=== PATIENT | female | born 1975 | race Caucasian/White ===

== ENCOUNTER 2018-12-18 07:47 | Outpatient (CLI) | payer OTHER ==
[2018-12-18 10:28] LABS: BASOPHILS # (AUTO) 0.1 10^3/uL (0.0-0.1); EOSINOPHILS # (AUTO) 0.2 10^3/uL (0.0-0.7); EOSINOPHILS % (AUTO) 3.1 %; HGB - HEMOGLOBIN 14.3 g/dL (12.0-16.0); LYMPHOCYTES # (AUTO) 2.1 10^3/uL (1.5-3.5); LYMPHOCYTES % (AUTO) 40.3 %; MEAN CORPUSCULAR HEMOGLOBIN 31.5 pg (27.0-31.0); MEAN CORPUSCULAR VOLUME 92.7 fL (81.0-99.0); MEAN PLATELET VOLUME 9.1 fL (7.9-10.8); MONOCYTES # (AUTO) 0.4 10^3/uL (0.0-1.0); MONOCYTES % (AUTO) 7.6 %; NEUTROPHILS # (AUTO) 2.5 10^3/uL (1.5-6.6); PLT - PLATELET COUNT 252 10^3/uL (130-450); RED BLOOD COUNT 4.54 10^6/uL (4.20-5.40); RED CELL DISTRIBUTION WIDTH 13.6 % (12.0-15.0); WHITE BLOOD COUNT 5.1 x10^3/uL (4.8-10.8)
[2018-12-18 10:40] LABS: HB2 TOTAL 15.6 g/dL; HEMOGLOBIN A1C 0.55 g/dL; HEMOGLOBIN A1C % 5.4 % (4.6-6.2)
[2018-12-18 10:41] LABS: CHOL/HDL RATIO 3.4 (<4.4); CHOLESTEROL 191 mg/dL; HDL CHOLESTEROL 57 mg/dL; LDL CHOLESTEROL,CALCULATED 112 mg/dL; VLDL CHOLESTEROL 22 mg/dL
== END 2018-12-18 07:48 | disposition home or self-care (01) ==
LOC: LAB.F 07:47
PROVIDERS: ATTEND Nurse Practitioner Family
DX: Z13.220 Encounter for screening for lipoid disorders (principal); Z13.1 Encounter for screening for diabetes mellitus; K20.9 Esophagitis, unspecified; R25.8 Other abnormal involuntary movements
CPT/HCPCS: 36415; 80061; 83036; 83721; 84443; 85025

== ENCOUNTER 2019-01-04 07:32 | Outpatient (CLI) | payer OTHER | END 2019-01-04 07:33 | disposition home or self-care (01) | LOC: LAB.F 07:32 | PROVIDERS: ATTEND Obstetrics & Gynecology | DX: N95.1 Menopausal and female climacteric states (principal) | CPT/HCPCS: 36415; 82670; 83001 ==

== ENCOUNTER 2019-01-18 16:48 | Outpatient (CLI) | payer OTHER ==
--- NOTE | 2019-01-19 11:05 | Ultrasound Report ---
Reason: PELVIC PAIN Procedure Date: 01/18/2019 Accession Number: [id number] / [id number] Procedure: US - Pelvic w/Transvaginal CPT Code: FULL RESULT: EXAM: PELVIC ULTRASOUND EXAM DATE: 01/18/2019 05:38 PM. CLINICAL HISTORY: Pelvic pain. COMPARISON: None. TECHNIQUE: Realtime transabdominal pelvic scan performed to identify the uterus and adnexa and as an overview of other pelvic structures, followed by transvaginal scan to provide greater detail of the uterus and adnexa, with static image documentation. FINDINGS: Uterus: Status post hysterectomy. Right Ovary: 4.8 x 3.4 x 2.3 cm, volume 19.6 cc. A 2.2 x 1.7 x 2.1 cm cyst was noted. Left Ovary: Status post left oophorectomy. Free Fluid: None. Other: None. IMPRESSION: Right ovarian cyst which is within normal limits for size in the premenopausal patient. RADIA
== END 2019-01-18 16:49 | disposition home or self-care (01) ==
LOC: DI 16:48
PROVIDERS: ATTEND Obstetrics & Gynecology
DX: R10.2 Pelvic and perineal pain (principal); N83.201 Unspecified ovarian cyst, right side
CPT/HCPCS: 76830; 76856

== ENCOUNTER 2021-03-04 14:44 | Inpatient (IN) | payer OTHER ==
[2021-03-04] MEDS ORDERED: HYDROmorphone 1 MG/ML CARPUJECT IVP STA ×3 (14:53→16:14)
[2021-03-04] MEDS ORDERED: ONDANSETRON 4 MG/2 ML VIAL IVP STA (14:53)
--- NOTE | 2021-03-04 14:54 | ED Physician Documentation ---
PD HPI ABD PAIN - Stated complaint Stated Complaint: ABD PX - Chief complaint Chief Complaint: Abd Pain - History obtained from History obtained from: Patient - History of Present Illness Worsened by: Moving Associated symptoms: Nausea, Vomiting Recently seen: Not recently seen - Additional information Additional information: Sudden onset right lower quadrant pain a few hours ago. It is sudden and severe. Feels like prior ovary pain but worse. She has a hysterectomy and left oophorectomy but the right ovary is still in place. 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 - Present Medications Home Medications: Ambulatory Orders Medication Instructions Recorded Confirmed Ondansetron [Zofran] 4 mg PO Q6H PRN #10 tablet 10/26/14 Phenazopyridine [Pyridium] 200 mg PO TID 6 Days tablet 10/26/14 Sulfamethoxazole/Trimethoprim 1 each PO BID #14 tablet 10/26/14 [Sulfamethoxazole-Tmp Ds Tablet] - Allergies Allergies/Adverse Reactions: Allergies Allergy/AdvReac Type Severity Reaction Status Date / Time morphine Allergy Respiratory Verified 03/04/21 14:50 - Social History Does the pt smoke?: No Smoking Status: Never smoker Does the pt drink ETOH?: No Does the pt have substance abuse?: No - Family History Family history: reports: Non contributory - Immunizations Immunizations are current?: Yes - POLST Patient has POLST: No PD ED PE NORMAL - Vitals Vital signs reviewed: Yes - General General: Alert and oriented X 3, Other (She is histrionic and writhing in pain.) - HEENT HEENT: PERRL, EOMI - Neck Neck: Supple, no meningeal sign, No bony TTP - Cardiac Cardiac: RRR, No murmur - Respiratory Respiratory: No respiratory distress, Clear bilaterally - Abdomen Abdomen: Soft, Other (Diffuse tenderness most localized in the right lower quadrant without surgical signs) - Back Back: No spinal TTP - Derm Derm: Normal color, Warm and dry - Extremities Extremities: No edema, No calf tenderness / cord - Neuro Neuro: Alert and oriented X 3, Normal speech - Psych Psych: Normal mood, Normal affect Results - Vitals Vitals: Vital Signs - 24 hr 03/04/21 03/04/21 03/04/21 14:46 14:49 16:21 Temperature 36.8 C 36.8 C Heart Rate 81 81 70 Respiratory 22 22 16 Rate Blood Pressure 128/77 128/77 130/80 O2 Saturation 100 100 95 Oxygen O2 Source Room air - Labs Labs: Laboratory Tests 03/04/21 03/04/21 03/04/21 15:05 15:05 15:52 WBC 14.4 H RBC 4.94 Hgb 15.4 Hct 43.7 MCV 88.5 MCH 31.2 H MCHC 35.2 RDW 13.2 Plt Count 308 MPV 10.6 Neut # (Auto) 11.9 H Lymph # (Auto) 1.8 [place] # (Auto) 0.6 Eos # (Auto) 0.0 Baso # (Auto) 0.1 Absolute Nucleated RBC 0.00 Nucleated RBC % 0.0 Sodium 135 Potassium 4.0 Chloride 104 Carbon Dioxide 18 L Anion Gap 13.0 BUN 12 Creatinine 0.8 Estimated GFR (MDRD) 78 L Glucose 141 H Calcium 9.2 Total Bilirubin 0.9 AST 14 ALT 11 Alkaline Phosphatase 58 Total Protein 7.9 Albumin 4.7 Globulin 3.2 Albumin/Globulin Ratio 1.5 Lipase 22 Urine Color Urine Clarity Urine pH Ur Specific [place] Urine Protein Urine Glucose (UA) Urine Ketones Urine Occult Blood Urine Nitrite Urine Bilirubin Urine Urobilinogen Ur Leukocyte Esterase Ur Microscopic Review Urine Culture Comments Nasal Adenovirus (PCR) NOT DETECTED Nasal B. parapertussis DNA (PCR) NOT DETECTED Nasal Coronavir 229E PCR NOT DETECTED Nasal Coronavir HKU1 PCR NOT DETECTED Nasal Coronavir NL63 PCR NOT DETECTED Nasal Coronavir OC43 PCR NOT DETECTED Nasal Enterovir/Rhinovir PCR NOT DETECTED Nasal Influenza B PCR NOT DETECTED Nasal Influenza A PCR NOT DETECTED Nasal Parainfluen 1 PCR NOT DETECTED Nasal Parainfluen 2 PCR NOT DETECTED Nasal Parainfluen 3 PCR NOT DETECTED Nasal Parainfluen 4 PCR NOT DETECTED Nasal RSV (PCR) NOT DETECTED Nasal B.pertussis DNA PCR NOT DETECTED Nasal C.pneumoniae (PCR) NOT DETECTED Rodrigue Human Metapneumo PCR NOT DETECTED Nasal M.pneumoniae (PCR) NOT DETECTED Nasal SARS-CoV-2 (PCR) NOT DETECTED 03/04/21 17:05 WBC RBC Hgb Hct MCV MCH MCHC RDW Plt Count MPV Neut # (Auto) Lymph # (Auto) [place] # (Auto) Eos # (Auto) Baso # (Auto) Absolute Nucleated RBC Nucleated RBC % Sodium Potassium Chloride Carbon Dioxide Anion Gap BUN Creatinine Estimated GFR (MDRD) Glucose Calcium Total Bilirubin AST ALT Alkaline Phosphatase Total Protein Albumin Globulin Albumin/Globulin Ratio Lipase Urine Color YELLOW Urine Clarity CLEAR Urine pH 5.5 Ur Specific [place] 1.020 Urine Protein NEGATIVE Urine Glucose (UA) NEGATIVE Urine Ketones 15 H Urine Occult Blood NEGATIVE Urine Nitrite NEGATIVE Urine Bilirubin NEGATIVE Urine Urobilinogen 0.2 (NORMAL) Ur Leukocyte Esterase NEGATIVE Ur Microscopic Review NOT INDICATED Urine Culture Comments NOT INDICATED Nasal Adenovirus (PCR) Nasal B. parapertussis DNA (PCR) Nasal Coronavir 229E PCR Nasal Coronavir HKU1 PCR Nasal Coronavir NL63 PCR Nasal Coronavir OC43 PCR Nasal Enterovir/Rhinovir PCR Nasal Influenza B PCR Nasal Influenza A PCR Nasal Parainfluen 1 PCR Nasal Parainfluen 2 PCR Nasal Parainfluen 3 PCR Nasal Parainfluen 4 PCR Nasal RSV (PCR) Nasal B.pertussis DNA PCR Nasal C.pneumoniae (PCR) Rodrigue Human Metapneumo PCR Nasal M.pneumoniae (PCR) Nasal SARS-CoV-2 (PCR) - Rads (name of study) Pelvic Sono Radiology: EMP read contemporaneously (c/w R ovarian torsion with large complex cyst) PD MEDICAL DECISION MAKING - ED course ED course: 45-year-old woman who has had a remote hysterectomy and left oophorectomy but has known cyst on the right ovary presents with severe sudden onset right pelvic pain and "looks" like she is torsing. This is proven on ultrasound and our on- call research study assistant was called in at 3:50 PM, Dr. Peck. - Critical Care Time(min): 35 Time Includes: Direct patient care (multiple rpt doses narcotics for severe pain), Reassess patient, Document care, Coordinate care, Medical consult, Family consult for tx dec Data interpretation: Labs, Pulse ox Procedures included in critical care time: Peripheral IV Departure - Departure Disposition: ED Transfer to [facility] Clinical Impression: Ovarian torsion Condition: Serious Discharge Date/Time: 03/04/21 17:09
[2021-03-04] MEDS ORDERED: KETOROLAC 30 MG/ML VIAL IVP STA (15:18)
[2021-03-04 15:19] LABS: BASOPHILS # (AUTO) 0.1 10^3/uL (0.0-0.1); BASOPHILS % (AUTO) 0.3 %; EOSINOPHILS % (AUTO) 0.1 %; HCT - HEMATOCRIT 43.7 % (37.0-47.0); HGB - HEMOGLOBIN 15.4 g/dL (12.0-16.0); LYMPHOCYTES # (AUTO) 1.8 10^3/uL (1.5-3.5); LYMPHOCYTES % (AUTO) 12.5 %; MEAN CORPUSCULAR HEMOGLOBIN 31.2 pg (27.0-31.0); MEAN CORPUSCULAR HGB CONC 35.2 g/dL (32.0-36.0); MEAN CORPUSCULAR VOLUME 88.5 fL (81.0-99.0); MEAN PLATELET VOLUME 10.6 fL (7.9-10.8); MONOCYTES # (AUTO) 0.6 10^3/uL (0.0-1.0); MONOCYTES % (AUTO) 3.8 %; NEUTROPHILS # (AUTO) 11.9 10^3/uL (1.5-6.6); PLT - PLATELET COUNT 308 10^3/uL (130-450); RED BLOOD COUNT 4.94 10^6/uL (4.20-5.40); RED CELL DISTRIBUTION WIDTH 13.2 % (12.0-15.0); WHITE BLOOD COUNT 14.4 x10^3/uL (4.8-10.8)
[2021-03-04 15:33] LABS: ALBUMIN 4.7 g/dL (3.2-5.5); ALBUMIN/GLOBULIN RATIO 1.5 (1.0-2.2); BILIRUBIN,TOTAL 0.9 mg/dL (0.2-1.0); CALCIUM 9.2 mg/dL (8.5-10.3); CREATININE 0.8 mg/dL (0.4-1.0); TOTAL PROTEIN 7.9 g/dL (6.7-8.2)
[2021-03-04] MEDS ORDERED: LACTATED RINGERS 1,000 ML IV STA (15:51)
[2021-03-04] MEDS ORDERED: ceFAZolin 2 GM/50 ML 2 GM/50 ML BAG IV ONE (16:27)
--- NOTE | 2021-03-04 16:28 | Ultrasound Report ---
PROCEDURE: Pelvic w/Doppler Complete INDICATIONS: RT PELVIC PX TORSION? S/P HYSTER LT OOPH TECHNIQUE: Real-time scanning was performed of the pelvic organs, with image documentation. Additional endovagi nal scanning was necessary due to incomplete visualization of the adnexal and endometrial structures by transabdominal scanning. COMPARISON: 01/18/2019 pelvic ultrasound.. FINDINGS: No pathologic free abdominal or pelvic fluid. Uterus: Uterus is surgically absent. Ovaries: The right ovary measures 9.9 x 5.0 x 6.3 cm with 162 cc volume. The left ovary is surgicall y absent. Reduced blood flow is seen at the right ovary in addition to this overall enlargement. IMPRESSION: Enlarged right ovary measuring up to 162 cc, with reduced blood flow consistent with right ovarian to rsion. Quality of visualization is somewhat limited-prior hysterectomy and left oophorectomy. Reviewed by: John Walton MD on 03/04/2021 3:26 PM JAYSHREE Approved by: John Walton MD on 03/04/2021 3:26 PM JAYSHREE Station ID: [id number]
[2021-03-04] MEDS ORDERED: LIDOCAINE-MPF 2% 5 ML VIAL ONE (16:39)
[2021-03-04] MEDS ORDERED: ROPIVACAINE 0.5% PF 20 ML AMPULE ONE (16:39)
[2021-03-04] MEDS ORDERED: fentaNYL 100 MCG/2 ML VIAL ONE (16:39)
[2021-03-04] MEDS ORDERED: DEXAMETHASONE 4 MG/ML VIAL ONE (16:39)
[2021-03-04] MEDS ORDERED: KETOROLAC 30 MG/ML VIAL ONE (16:39)
[2021-03-04] MEDS ORDERED: ONDANSETRON 4 MG/2 ML VIAL ONE (16:39)
[2021-03-04] MEDS ORDERED: ROCURONIUM 50 MG/5 ML VIAL ONE ×2 (16:39→17:46)
[2021-03-04] MEDS ORDERED: PROPOFOL 200 MG/20 ML VIAL IVP ONE (16:39)
--- NOTE | 2021-03-04 16:43 | HISTORY & PHYSICAL EXAMINATION ---
History and Physical - History and Physical Identification: Patient is a 43-year-old . Chief complaint abdominal pain History of present illness patient states at 9:00 this morning she developed sharp right lower quadrant pain which has become constant unrelenting and increasing with time. She has a history of having had her uterus as well as left ovary removed and serial operations. She has had difficulty with ovarian cyst which of cause pain off and on. She has had an ultrasound which shows a pelvic mass which is 9.9 x 5 x 6.3 cm. There is minimal blood flow noted to it at this particular time. At this point the diagnosis of torsed ovary is being made. Past medical history: Patient denies any history of hypertensive diabetic cardiac or pulmonary disease Surgical history: C/Section. patient has had initially a laparotomy for removal of fibroids this was not performed initially. She had to have a reoperation with removal of the uterus. To this she had a reexploration which they took the left tube and ovary as well as the cervix out. Allergies morphine which causes swelling Current medications: none Habits: Patient denies use of alcohol tobacco or street of addictive drugs or marijuana. Social history; patient is lives with her spouse in a sober safe environment. 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 Review of systems noncontributory Physical examination: Patient is a well-developed well-nourished female she is currently apparently under the influence of the Dilaudid. She does respond and address questions intelligently. She is in a moderate to amount of pain. HEENT: Pupils equal round extraocular muscles intact Heart: Regular rate and rhythm without murmurs lungs: Clear without rales weight breezes Back: no spinal or CVA tenderness noted Abdomen: Nondistended bowel sounds are present patient has pain in the right lower quadrant which duplicates the pain she is complaining of. Back no spinal or CVA tenderness noted No calf tenderness. Impression: 45-year-old female with To Sonic evidence of a torsed right ovary. Plan: We will perform exploratory laparotomy because of the size. Will remove the ovary. Risks and benefits have been explained the patient including those but not limited to bleeding, infection, injury to the pelvic organs. She is aware the potential for DVT with PE. As well as postop adhesions which could cause pain, bowel obstruction. Moises Peck MD.
--- NOTE | 2021-03-04 16:45 | ANESTHESIA ---
Pre-Anesthesia VS, & Labs - Diagnosis abdominal pain - Procedure Diagnostic laparoscopy, right oopherectomy Vital Signs: Temp Pulse Resp BP Pulse Ox 36.8 C 70 16 130/80 95 03/04/21 14:49 03/04/21 16:21 03/04/21 16:21 03/04/21 16:21 03/04/21 16:21 Height: 5 ft 6 in Weight (kg): 81.647 kg Body Mass Index: 29.0 BMI Classification: Overweight - NPO >8 hours - Is Patient ?: No - Lab Results Current Lab Results: Laboratory Tests 03/04/21 15:05: Sodium 135, Potassium 4.0, Chloride 104, Carbon Dioxide 18 L, Anion Gap 13.0, BUN 12, Creatinine 0.8, Estimated GFR (MDRD) 78 L, Glucose 141 H , Calcium 9.2, Total Bilirubin 0.9, AST 14, ALT 11, Alkaline Phosphatase 58, Total Protein 7.9, Albumin 4.7, Globulin 3.2, Albumin/Globulin Ratio 1.5, Lipase 22 03/04/21 15:05: WBC 14.4 H, RBC 4.94, Hgb 15.4, Hct 43.7, MCV 88.5, MCH 31.2 H, MCHC 35.2, RDW 13.2, Plt Count 308, MPV 10.6, Neut # (Auto) 11.9 H, Lymph # (Auto) 1.8, [place] # (Auto) 0.6, Eos # (Auto) 0.0, Baso # (Auto) 0.1, Absolute Nucleated RBC 0.00, Nucleated RBC % 0.0 Lab results reviewed: Yes Fish Bones: 03/04/21 15:05 03/04/21 15:05 Home Medications and Allergies Active Medications Lactated Ringer's (Lr) 1,000 mls @ 125 mls/hr IV .Q8H STA Stop: 03/04/21 23:50 Last Admin: 03/04/21 16:19 Dose: 125 mls/hr Documented by: Cefazolin Sodium/Dextrose (Ancef 2 Gm/50 Ml) 2 gm in 50 mls @ 100 mls/hr IV ONCE ONE Stop: 03/04/21 16:56 Last Admin: 03/04/21 16:35 Dose: 100 mls/hr Documented by: Allergies/Adverse Reactions: Allergies Allergy/AdvReac Type Severity Reaction Status Date / Time morphine Allergy Respiratory Verified 03/04/21 14:50 Anes History & Medical History - Anesthetic History Anesthesia Complications: reports: No previous complications Family history of Anesthesia Complications: Denies Family history of Malignant Hyperthermia: Denies - Medical History Cardiovascular: reports: None Pulmonary: reports: None Gastrointestinal: reports: None Urinary: reports: None Neuro: reports: None Musculoskeletal: reports: None Endocrine/Autoimmune: reports: None Blood Disorders: reports: None Skin: reports: None Smoking Status: Never smoker Psychosocial: reports: No issues indicated History of Cancer?: No - Surgical History Gynecologic: reports: Hysterectomy Exam General: Alert, Oriented x3, Cooperative, No acute distress Dental: WNL Mouth Openin Fingerbreadth Neck Mobility: Normal Mallampati classification: II Respiratory: Lungs clear, Normal breath sounds, No respiratory distress, No accessory muscle use Cardiovascular: Regular rate, Normal S1, Normal S2, No murmurs Plan Anesthesia Type: General, Transverse Abdominis Plane (TAP) Block Consent for Procedure(s) Verified and Reviewed: Yes Code Status: Attempt Resuscitation ASA classification: 2-Mild systemic disease Is this case an emergency?: Yes
[2021-03-04] MEDS ORDERED: BUPIVACAINE 0.5%-EPI 1:200000 PF 30 ML VIAL ONE (16:59)
[2021-03-04 17:05] LABS: B. PARAPERTUSSIS- RESP PCR PAN NOT DETECTED; B. PERTUSSIS- RESP PCR PANEL NOT DETECTED; C. PNEUMONIAE- RESP PCR PANEL NOT DETECTED; CORONAVIRUS 229E-RESP PCR NOT DETECTED; CORONAVIRUS HKU1-RESP PCR NOT DETECTED; CORONAVIRUS NL63-RESP PCR NOT DETECTED; CORONAVIRUS OC43-RESP PCR NOT DETECTED; HUMAN METAPNEUMOVIRUS NOT DETECTED; INFLUENZA A- RESP PCR PANEL NOT DETECTED; INFLUENZA B - RESP PCR PANEL NOT DETECTED; M. PNEUMONIAE- RESP PCR PANEL NOT DETECTED; PARAINFLUENZA VIRUS 1 NOT DETECTED; PARAINFLUENZA VIRUS 2 NOT DETECTED; PARAINFLUENZA VIRUS 3 NOT DETECTED; PARAINFLUENZA VIRUS 4 NOT DETECTED; RHINOVIRUS/ENTEROVIRUS NOT DETECTED; RSV- RESP PCR PANEL NOT DETECTED; SARS-CoV-2 -RESP PCR PANEL NOT DETECTED
[2021-03-04 17:12] LABS: BILIRUBIN,URINE NEGATIVE (NEGATIVE); GLUCOSE, URINE (UA) NEGATIVE (NEGATIVE); KETONES,URINE (UA) 15 mg/dL (NEGATIVE); LEUKOCYTE ESTERASE, URINE NEGATIVE (NEGATIVE); NITRITE,URINE NEGATIVE (NEGATIVE); OCCULT BLOOD,URINE NEGATIVE (NEGATIVE); PH,URINE 5.5 PH (5.0-7.5); PROTEIN,URINE NEGATIVE (NEGATIVE); UROBILINOGEN,URINE 0.2 (NORMAL) E.U./dL (NORMAL)
[2021-03-04 17:15] LABS: CLARITY,URINE CLEAR (CLEAR)
[2021-03-04] MEDS ORDERED: LIDOCAINE 1% 50 ML MDV ONE (17:25)
[2021-03-04] MEDS ORDERED: KETAMINE 500 MG/10 ML VIAL ONE (17:26)
[2021-03-04] MEDS ORDERED: ACETAMINOPHEN 1,000 MG/100 ML 100 ML IV ONE (17:27)
[2021-03-04] MEDS ORDERED: DEXAMETHASONE 10 MG/ML VIAL ONE (17:39)
[2021-03-04] MEDS ORDERED: ePHEDrine 50 MG/ML VIAL IVP ONE (17:45)
[2021-03-04] MEDS ORDERED: DEXMEDETOMIDINE 200 MCG/2 ML VIAL ONE (17:52)
[2021-03-04] MEDS ORDERED: BUPIVACAINE 0.25%-EPI 1:200000 PF 30 ML VIAL SUBQ ONE ×3 (17:59)
[2021-03-04] MEDS ORDERED: LIDOCAINE 1% 50 ML MDV SUBQ ONE ×3 (18:00)
[2021-03-04] MEDS ORDERED: SUGAMMADEX 200 MG/2 ML VIAL IVP ONE (18:00)
[2021-03-04] MEDS ORDERED: ATROPINE ABBOJECT 1 MG/10 ML SYRINGE IVP PRN (18:31)
[2021-03-04] MEDS ORDERED: HYDROmorphone 0.5 MG/0.5 ML SYRINGE IVP PRN ×2 (18:31→18:50)
[2021-03-04] MEDS ORDERED: fentaNYL 100 MCG/2 ML VIAL IVP PRN (18:31)
[2021-03-04] MEDS ORDERED: ONDANSETRON 4 MG/2 ML VIAL IVP PRN ×2 (18:31→18:50)
[2021-03-04] MEDS ORDERED: ePHEDrine 50 MG/ML VIAL IVP PRN (18:31)
[2021-03-04] MEDS ORDERED: METOCLOPRAMIDE 10 MG/2 ML VIAL IVP PRN (18:31)
[2021-03-04] MEDS ORDERED: NALOXONE 0.4 MG/ML VIAL IVP PRN (18:31)
[2021-03-04] MEDS ORDERED: LACTATED RINGERS 1,000 ML IV ONE ×2 (18:35)
[2021-03-04] MEDS ORDERED: LACTATED RINGERS 1,000 ML IV SCH (19:00)
--- NOTE | 2021-03-04 19:00 | OPERATIVE REPORT ---
Operative Report - General Procedure Date: 03/04/21 Planned Procedure: Exploratory laparotomy with possible right salpingo-oophorectomy Pre-Op Diagnosis: Torsed right ovary Procedure Performed: Exploratory laparotomy right salpingo-oophorectomy peritoneal lavage Post Op Diagnosis: Hemoperitoneum with actively bleeding right ovarian corpus hemorrhagic M. - Procedure Note Primary Surgeon: Moises Peck MD Anesthesia Provider: Jose Jarquin CRNA Anesthesia Technique: General ET tube Pathology: Right tube and ovary IV Fluids (mL): 1,000 Estimated Blood Loss (mL): 300 Urine Output (mL): 60 Findings: Upon entering the abdominal cavity there was lots of bleeding and clot noted in the pelvis. The right tube and ovary showed evidence of an actively bleeding corpus hemorrhagic coming.Trigger was identified no to be free of any disease. There is no adhesions in the pelvic cavity. - Other Other Information/Narrative: Patient was placed in the supine position and following adequate endotracheal anesthesia she was prepped and draped in the usual fashion a Aguila catheter was placed. At this point a timeout was performed and concerns were addressed. A Pfannenstiel incision was carried down through the subcutaneous tissue the old scar was excised. The fascia was incised transversely then the utilizing both blunt and sharp dissection it was freed from the rectus abdominis. The rectus was split along the midline care was taken avoid any injury to bowel bladder at this point hemoperitoneum was encountered there was a moderate to large amount of blood noted. An O'Deni-O'No retractor was placed and the clot was grouped as well as sucked out of the pelvis. The ovary showed evidence of active bleeding. The tube was edematous with also blood noted. Then utilizing a LigaSure the infundibulopelvic ligament was doubly cauterized and transected. Prior to this the ureter was identified and noted be free of the operative field. The pelvis was once again irrigated with copious amounts of sterile saline water. The pedicles inspected for bleeding none was noted at this point the O'Deni-O'No retractor was removed. The bowel was allowed to fall back in its normal configuration. Because of no previous adhesions it was decided not to put any Interceed. The peritoneum was closed utilizing 2-0 Vicryl. The rectus was irrigated reapproximated with 2-0 Vicryl [id number] and then the fascia was closed utilizing #0 Vicryl in a running suture. The subcutaneous tissue was irrigated because of some dimpling of the incision previously it was undermined in the inferior portion this area was then closed utilizing 2-0 Vicryl subcutaneously the incision itself was closed using 4-0 Monocryl subcuticular. Mastisol with Steri-Strips were applied. Patient tolerated procedure well and was taken recovery in stable condition. Sponge needle counts were correct.
--- NOTE | 2021-03-04 19:02 | ANESTHESIA POST OP EVALUATION ---
Anesthesia Post Eval - Post Anesthesia Eval Vitals: Last Vital Signs Temp 37.3 C 03/04/21 19:00 Pulse 85 03/04/21 19:00 Resp 15 03/04/21 19:00 BP 125/79 03/04/21 19:00 Pulse Ox 100 03/04/21 19:00 CV Function Including HR & BP: Stable Pain Control: Satisfactory Nausea & Vomiting: Negative Mental Status: Baseline Respiratory Status: Airway Patent Hydration Status: Satisfactory Anesthesia Complications: None
[2021-03-04] MEDS: ACETAMINOPHEN 500 MG TABLET PO SCH (19:33)
[2021-03-04] MEDS ORDERED: KETOROLAC 30 MG/ML VIAL IVP PRN (21:00)
[2021-03-04] MEDS: DOCUSATE SODIUM 100 MG CAPSULE PO SCH (21:38)
[2021-03-05] MEDS: ACETAMINOPHEN 500 MG TABLET PO SCH ×2 (03:06→14:43)
[2021-03-05] MEDS ORDERED: IBUPROFEN 800 MG TABLET PO PRN (08:48)
--- NOTE | 2021-03-05 09:01 | PROVIDER PROGRESS NOTE ---
Subjective - General Admit Date: 03/04/21 Procedure Date: 03/04/21 Post Op Days: 1 Procedure Performed: EX lap - Review of Systems Wound/Incisions: positive: Dressing dry and intact General: positive: No symptoms (Pain /10) Gastrointestinal: positive: Flatus Objective - Patient Data Reviewed Vital Signs: Yes Vital Signs: Vital Signs x48h Temp Pulse Resp BP Pulse Ox 03/05/21 07:41 36.9 C 83 16 103/65 95 03/05/21 05:57 36.5 C 80 16 105/62 97 03/05/21 03:00 36.6 C 83 18 102/61 96 Weight: Weight 03/03/21 03/04/21 03/05/21 23:59 23:59 23:59 Weight (kg) 81.647 kg Intake & Output: Intake and Output Totals x24h 03/03/21 03/04/21 03/05/21 23:59 23:59 23:59 Intake Total 877.083 962.917 Output Total 125 800 Balance 752.083 162.917 - Lab Results Lab Results: 03/04/21 15:05 03/04/21 15:05 Other Lab Results: Lab Results x24hrs 03/04/21 03/04/21 03/04/21 Range/Units 17:05 16:38 15:52 WBC (4.8-10.8) x10^3/uL RBC (4.20-5.40) 10^6/uL Hgb (12.0-16.0) g/dL Hct (37.0-47.0) % MCV (81.0-99.0) fL MCH (27.0-31.0) pg MCHC (32.0-36.0) g/dL RDW (12.0-15.0) % Plt Count (130-450) 10^3/uL MPV (7.9-10.8) fL Neut # (Auto) (1.5-6.6) 10^3/uL Lymph # (Auto) (1.5-3.5) 10^3/uL Rhea # (Auto) (0.0-1.0) 10^3/uL Eos # (Auto) (0.0-0.7) 10^3/uL Baso # (Auto) (0.0-0.1) 10^3/uL Absolute Nucleated RBC x10^3/uL Nucleated RBC % /100WBC Sodium (135-145) mmol/L Potassium (3.5-5.0) mmol/L Chloride (101-111) mmol/L Carbon Dioxide (21-32) mmol/L Anion Gap (6-13) BUN (6-20) mg/dL Creatinine (0.4-1.0) mg/dL Estimated GFR (MDRD) (>89) Glucose (70-100) mg/dL Calcium (8.5-10.3) mg/dL Total Bilirubin (0.2-1.0) mg/dL AST (10-42) IU/L ALT (10-60) IU/L Alkaline Phosphatase (42-121) IU/L Total Protein (6.7-8.2) g/dL Albumin (3.2-5.5) g/dL Globulin (2.1-4.2) g/dL Albumin/Globulin Ratio (1.0-2.2) Lipase (22-51) U/L Urine Color YELLOW Urine Clarity CLEAR (CLEAR) Urine pH 5.5 (5.0-7.5) PH Ur Specific [place] 1.020 (1.002-1.030) Urine Protein NEGATIVE (NEGATIVE) mg/dL Urine Glucose (UA) NEGATIVE (NEGATIVE) mg/dL Urine Ketones 15 H (NEGATIVE) mg/dL Urine Occult Blood NEGATIVE (NEGATIVE) Urine Nitrite NEGATIVE (NEGATIVE) Urine Bilirubin NEGATIVE (NEGATIVE) Urine Urobilinogen 0.2 (NORMAL) (NORMAL) E.U./dL Ur Leukocyte Esterase NEGATIVE (NEGATIVE) Ur Microscopic Review NOT INDICATED Urine Culture Comments NOT INDICATED Nasal Adenovirus (PCR) NOT DETECTED Nasal B. parapertussis DNA (PCR) NOT DETECTED Nasal Coronavir 229E PCR NOT DETECTED Nasal Coronavir HKU1 PCR NOT DETECTED Nasal Coronavir NL63 PCR NOT DETECTED Nasal Coronavir OC43 PCR NOT DETECTED Nasal Enterovir/Rhinovir PCR NOT DETECTED Nasal Influenza B PCR NOT DETECTED Nasal Influenza A PCR NOT DETECTED Nasal Parainfluen 1 PCR NOT DETECTED Nasal Parainfluen 2 PCR NOT DETECTED Nasal Parainfluen 3 PCR NOT DETECTED Nasal Parainfluen 4 PCR NOT DETECTED Nasal RSV (PCR) NOT DETECTED Nasal B.pertussis DNA PCR NOT DETECTED Nasal C.pneumoniae (PCR) NOT DETECTED Rodrigue Human Metapneumo PCR NOT DETECTED Nasal M.pneumoniae (PCR) NOT DETECTED Nasal SARS-CoV-2 (PCR) NOT DETECTED Blood Type O POSITIVE Blood Type Recheck Antibody Screen NEGATIVE 03/04/21 03/04/21 03/04/21 Range/Units 15:05 15:05 15:05 WBC 14.4 H (4.8-10.8) x10^3/uL RBC 4.94 (4.20-5.40) 10^6/uL Hgb 15.4 (12.0-16.0) g/dL Hct 43.7 (37.0-47.0) % MCV 88.5 (81.0-99.0) fL MCH 31.2 H (27.0-31.0) pg MCHC 35.2 (32.0-36.0) g/dL RDW 13.2 (12.0-15.0) % Plt Count 308 (130-450) 10^3/uL MPV 10.6 (7.9-10.8) fL Neut # (Auto) 11.9 H (1.5-6.6) 10^3/uL Lymph # (Auto) 1.8 (1.5-3.5) 10^3/uL Rhea # (Auto) 0.6 (0.0-1.0) 10^3/uL Eos # (Auto) 0.0 (0.0-0.7) 10^3/uL Baso # (Auto) 0.1 (0.0-0.1) 10^3/uL Absolute Nucleated RBC 0.00 x10^3/uL Nucleated RBC % 0.0 /100WBC Sodium 135 (135-145) mmol/L Potassium 4.0 (3.5-5.0) mmol/L Chloride 104 (101-111) mmol/L Carbon Dioxide 18 L (21-32) mmol/L Anion Gap 13.0 (6-13) BUN 12 (6-20) mg/dL Creatinine 0.8 (0.4-1.0) mg/dL Estimated GFR (MDRD) 78 L (>89) Glucose 141 H (70-100) mg/dL Calcium 9.2 (8.5-10.3) mg/dL Total Bilirubin 0.9 (0.2-1.0) mg/dL AST 14 (10-42) IU/L ALT 11 (10-60) IU/L Alkaline Phosphatase 58 (42-121) IU/L Total Protein 7.9 (6.7-8.2) g/dL Albumin 4.7 (3.2-5.5) g/dL Globulin 3.2 (2.1-4.2) g/dL Albumin/Globulin Ratio 1.5 (1.0-2.2) Lipase 22 (22-51) U/L Urine Color Urine Clarity (CLEAR) Urine pH (5.0-7.5) PH Ur Specific [place] (1.002-1.030) Urine Protein (NEGATIVE) mg/dL Urine Glucose (UA) (NEGATIVE) mg/dL Urine Ketones (NEGATIVE) mg/dL Urine Occult Blood (NEGATIVE) Urine Nitrite (NEGATIVE) Urine Bilirubin (NEGATIVE) Urine Urobilinogen (NORMAL) E.U./dL Ur Leukocyte Esterase (NEGATIVE) Ur Microscopic Review Urine Culture Comments Nasal Adenovirus (PCR) Nasal B. parapertussis DNA (PCR) Nasal Coronavir 229E PCR Nasal Coronavir HKU1 PCR Nasal Coronavir NL63 PCR Nasal Coronavir OC43 PCR Nasal Enterovir/Rhinovir PCR Nasal Influenza B PCR Nasal Influenza A PCR Nasal Parainfluen 1 PCR Nasal Parainfluen 2 PCR Nasal Parainfluen 3 PCR Nasal Parainfluen 4 PCR Nasal RSV (PCR) Nasal B.pertussis DNA PCR Nasal C.pneumoniae (PCR) Rodrigue Human Metapneumo PCR Nasal M.pneumoniae (PCR) Nasal SARS-CoV-2 (PCR) Blood Type Blood Type Recheck O POSITIVE Antibody Screen - Current Medications Current Medications: Current Medications Generic Name Dose Route Start Last Admin Trade Name Freq PRN Reason Stop Dose Admin Acetaminophen 1,000 mg 03/04/21 19:00 03/05/21 03:06 Acetaminophen 500 Mg Tablet PO 1,000 mg Q8H CHARLIE Administration Docusate Sodium 100 mg 03/04/21 21:00 03/04/21 21:38 Docusate Sodium 100 Mg Capsule PO 100 mg BID CHARLIE Administration - Physical Exam Wound/Incisions: positive: Dressing dry and intact General Appearance: positive: No acute distress, Alert Respiratory: positive: Chest non-tender, No respiratory distress, Breath sounds nml Cardiovascular: positive: Regular rate & rhythm, No murmur, No gallop Abdomen: positive: Nml bowel sounds, Tenderness. negative: Rebound Back: negative: CVA tenderness (R), CVA tenderness (L) Extremities: negative: Calf tenderness, Jairo's sign/cords Impression/Plan - Problem List Problem List: Patient is postop day #1 status post exploratory laparotomy with right salpingo-oophorectomy. At time of surgery she was noted to have a hemoperitoneum. Patient feels markedly improved today. She is passing flatus since last night. She is currently only taking Tylenol as well as ketorolac for pain control. Plan we will change patient to oral pain medication we will advance her diet re move her Aguila catheter. Will obtain CBC to check for her hemostatic status.
[2021-03-05 09:08] LABS: BASOPHILS % (AUTO) 0.2 %; EOSINOPHILS % (AUTO) 0.1 %; HCT - HEMATOCRIT 38.7 % (37.0-47.0); HGB - HEMOGLOBIN 13.5 g/dL (12.0-16.0); LYMPHOCYTES % (AUTO) 6.4 %; MEAN CORPUSCULAR HEMOGLOBIN 31.7 pg (27.0-31.0); MEAN CORPUSCULAR HGB CONC 34.9 g/dL (32.0-36.0); MEAN CORPUSCULAR VOLUME 90.8 fL (81.0-99.0); MEAN PLATELET VOLUME 10.4 fL (7.9-10.8); NEUTROPHILS # (AUTO) 13.7 10^3/uL (1.5-6.6); NEUTROPHILS % (AUTO) 86.7 %; PLT - PLATELET COUNT 284 10^3/uL (130-450); RED BLOOD COUNT 4.26 10^6/uL (4.20-5.40); RED CELL DISTRIBUTION WIDTH 13.4 % (12.0-15.0); WHITE BLOOD COUNT 15.7 x10^3/uL (4.8-10.8)
[2021-03-05] MEDS: oxyCODONE 5 MG TABLET PO PRN ×2 (09:24→16:45)
[2021-03-05] MEDS: DOCUSATE SODIUM 100 MG CAPSULE PO SCH (09:24)
--- NOTE | 2021-03-05 11:13 | PHARMACY PROGRESS NOTE ---
- Best Possible Medication History Admit Date and Time: 03/04/211924 Processed by: Pharmacy Medication History completed: Yes Patient Interview: Completed Secondary Source(s): Physician records, Pharmacy records, Insurance records (PATIENT REPORTS SHE DOES NOT TAKE ANY HOME MEDICATIONS ) As the person ultimately responsible for medication therapy, providers are able to order a medication from an existing home medication list in [facility] via the "Reconcile Routine" prior to Confirmation of that medication by passport support associate. Such practice is discouraged except when the physician, in their clinical judgment, deems that a medical need exists for a medication without regard to previous use.
[2021-03-05 11:19] VITALS: BP 101/55
== END 2021-03-05 17:40 | disposition home or self-care (01) | DRG 742 ==
LOC: ED 14:44 → SDS 16:14 → MS2 19:25
PROVIDERS: ADMIT Obstetrics & Gynecology; ATTEND Obstetrics & Gynecology
PROC: 0UT00ZZ Resection of Right Ovary, Open Approach (ICD-10-PCS; 2021-03-04)
PROC: 3E1M38Z Irrigation of Peritoneal Cavity using Irrigating Substance, Percutaneous Approach (ICD-10-PCS; 2021-03-04)
PROC: 0UT50ZZ Resection of Right Fallopian Tube, Open Approach (ICD-10-PCS; principal; 2021-03-04 17:00)
DX: N83.53 Torsion of ovary, ovarian pedicle and fallopian tube (principal); K66.1 Hemoperitoneum; Z90.710 Acquired absence of both cervix and uterus; Z20.822 Contact with and (suspected) exposure to COVID-19; E66.3 Overweight; Z68.29 Body mass index [BMI] 29.0-29.9, adult
CPT/HCPCS: 0202U; 36415; 76856; 80053; 81003; 83690; 85025; 86850; 86900; 86901; 93975; 96374; 96375; 99285; 99291; A9270; J0131; J0690; J1170; J7120; 81001; 87086

== ENCOUNTER 2022-04-30 10:52 | Outpatient (CLI) | payer OTHER ==
--- NOTE | 2022-05-01 09:52 | Mammography Report ---
BILATERAL DIGITAL SCREENING MAMMOGRAM 3D/2D WITH EXAGGERATED CC: 04/30/2022 CLINICAL: Routine screening. Baseline exam. No prior exams were available for comparison. There are scattered fibroglandular elements in both br easts. No significant masses, calcifications, or other findings are seen in either breast. IMPRESSION: NEGATIVE There is no mammographic evidence of malignancy. A 1 year screening mammogram is recommended. Based on the Tyrer Cuzick model (a risk assessment model) the patients lifetime risk is 9.1% and her 10 year risk is 1.6%. According to the ACR, ACS, and NCCN guidelines, an annual breast MRI exam rachid g with mammogram is recommended if the patients lifetime risk is 20% or greater. This exam was interpreted at Station ID: [id number]. NOTE: For mammograms, a report in lay terms will be sent to the patient. Approximately 15% of breast malignancies will not be visualized mammographically. In the management of a palpable breast mass, a negative mammogram must not discourage biopsy of a clinically suspicious lesion. Electronically Signed By: Catherine [email or web address]/[email or web address]:04/30/2022 13:14:47 ACR BI-RADS Category 1: Negative 3341F PARENCHYMAL PATTERN: (A) - The breast(s) demonstrate(s) scattered fibroglandular densities. BI-RADS CATEGORY: (1) - 1 RECOMMENDATION: (ANNUAL) - Recommend routine annual screening mammography. [id number] 1 year screening LATERALITY: (B)
== END 2022-04-30 10:53 | disposition home or self-care (01) ==
LOC: DI.S 10:52
PROVIDERS: ATTEND Obstetrics & Gynecology
DX: Z12.31 Encounter for screening mammogram for malignant neoplasm of breast (principal)

== ENCOUNTER 2023-05-31 23:34 | Emergency (ER) | payer OTHER ==
[2023-06-01 00:12] VITALS: BP 133/92; O2SAT 98
== END 2023-06-01 01:11 | disposition left against medical advice (07) ==
LOC: ED 23:34
DX: Z53.21 Procedure and treatment not carried out due to patient leaving prior to being seen by health care provider (principal)

== ENCOUNTER 2023-09-24 08:24 | Outpatient (CLI) | payer OTHER ==
[2023-09-24 14:33] LABS: BASOPHILS # (AUTO) 0.1 10^3/uL (0.0-0.1); BASOPHILS % (AUTO) 1.2 %; EOSINOPHILS # (AUTO) 0.1 10^3/uL (0.0-0.7); EOSINOPHILS % (AUTO) 2.3 %; HCT - HEMATOCRIT 46.9 % (37.0-47.0); HGB - HEMOGLOBIN 15.3 g/dL (12.0-16.0); MEAN CORPUSCULAR HEMOGLOBIN 29.1 pg (27.0-31.0); MEAN CORPUSCULAR HGB CONC 32.6 g/dL (32.0-36.0); MEAN CORPUSCULAR VOLUME 89.2 fL (81.0-99.0); MEAN PLATELET VOLUME 11.1 fL (7.9-10.8); MONOCYTES # (AUTO) 0.3 10^3/uL (0.0-1.0); MONOCYTES % (AUTO) 7.9 %; NEUTROPHILS # (AUTO) 1.8 10^3/uL (1.5-6.6); NEUTROPHILS % (AUTO) 42.4 %; PLT - PLATELET COUNT 292 10^3/uL (130-450); RED BLOOD COUNT 5.26 10^6/uL (4.20-5.40); RED CELL DISTRIBUTION WIDTH 13.9 % (12.0-15.0); WHITE BLOOD COUNT 4.3 x10^3/uL (4.8-10.8)
--- NOTE | 2023-09-24 15:05 | XRAY Report ---
PROCEDURE: Hand 3+V BL INDICATIONS: BILATERAL PAIN OF JOINT OF HANDS TECHNIQUE: 3 views of the hand(s) acquired. COMPARISON: None. FINDINGS: Bones: No fractures or dislocations. Minor spurring at the distal interphalangeal joints bilaterall y, left more so than right. No erosive changes. No suspicious bony lesions. Soft tissues: No suspicious soft tissue calcifications or masses. IMPRESSION: Minor DIP spur formation without other arthritic change. Reviewed by: Larissa Jorgensen MD on 09/24/2023 3:03 PM PST Approved by: Larissa Jorgensen MD on 09/24/2023 3:03 PM PST Station ID: [id number]
--- NOTE | 2023-09-24 15:08 | XRAY Report ---
PROCEDURE: Foot 3+V RT INDICATIONS: PAIN IN RIGHT FOOT TECHNIQUE: 3 views of the foot were acquired. COMPARISON: None. FINDINGS: Bones: There is an intact screw fragment in the first distal metatarsal. There is a fractured screw fragment in the fifth metatarsal. No bony fractures or malalignment. Mild degeneration at the first M TP and bunionectomy. No suspicious bone lesions or periostitis. Soft tissues: Dystrophic calcifications are present lateral to the cuboid bone. IMPRESSION: 1. No acute abnormalities. 2. Fifth metatarsal fixation hardware fracture. No evidence of bony fracture. 3. Dystrophic calcifications in the region of the peroneus longus may be calcific tendinitis. Reviewed by: Larissa Jorgensen MD on 09/24/2023 3:06 PM PST Approved by: Larissa Jorgensen MD on 09/24/2023 3:06 PM PST Station ID: [id number]
[2023-09-24 15:38] LABS: ALBUMIN 4.3 g/dL (3.2-5.5); ALBUMIN/GLOBULIN RATIO 1.7 (1.0-2.2); ALKALINE PHOSPHATASE 102 IU/L (42-121); ALT ALANINE AMINOTRANSFERASE 10 IU/L (10-60); AST ASPARTATE AMINOTRANSFERASE 13 IU/L (10-42); BILIRUBIN,TOTAL 0.5 mg/dL (0.2-1.0); BUN - BLOOD UREA NITROGEN 17 mg/dL (6-20); CALCIUM 9.5 mg/dL (8.5-10.3); CARBON DIOXIDE - CO2 26 mmol/L (21-32); CHLORIDE 108 mmol/L (101-111); CHOL/HDL RATIO 4.9 (<4.4); CHOLESTEROL 241 mg/dL; CREATININE 0.8 mg/dL (0.6-1.3); CRP - C-REACTIVE PROTEIN < 0.5 mg/dL (<0.5); GFR - MDRD 77 (>89); GLUCOSE 106 mg/dL (74-104); HDL CHOLESTEROL 49 mg/dL; SODIUM 140 mmol/L (135-145); TOTAL PROTEIN 6.8 g/dL (6.4-8.9); TRIGLYCERIDES 406 mg/dL (48-352); URIC ACID 5.8 mg/dL (2.3-6.6)
[2023-09-24 16:00] LABS: THYROID STIMULATING HORMONE 1.32 uIU/mL (0.34-5.60)
[2023-09-24 16:10] LABS: RHEUMATOID FACTOR NEGATIVE (Negative)
[2023-09-24 16:23] LABS: LDL CHOLESTEROL,DIRECT 132 mg/dL (75-193); LDLD/HDL RATIO 2.7 (<4.4)
[2023-09-24 20:43] LABS: ESTIMATED AVERAGE GLUCOSE 111 mg/dL (70-100); HEMOGLOBIN A1c% 5.5 % (4.27-6.07)
[2023-09-25 16:08] LABS: ANTI-DNA (DS) AB QN <1 IU/mL (0-9)
[2023-09-26 17:08] LABS: ANTINUCLEAR ANTIBODIES IFA Negative (.)
[2023-09-26 19:07] LABS: CYCLIC CITRULLINATED PEP IGG/A 8 units (0-19)
== END 2023-09-24 08:25 | disposition home or self-care (01) ==
LOC: DI.S 08:24
PROVIDERS: ATTEND Physician Assistant Medical
DX: M77.8 Other enthesopathies, not elsewhere classified (principal); M19.071 Primary osteoarthritis, right ankle and foot; Z13.9 Encounter for screening, unspecified
CPT/HCPCS: 36415; 80053; 80061; 83036; 83721; 84443; 84550; 85025; 85651; 86038; 86140; 86200; 86225; 86430

== ENCOUNTER 2023-10-08 07:50 | Outpatient (CLI) | payer OTHER ==
--- NOTE | 2023-10-10 11:36 | Mammography Report ---
BILATERAL DIGITAL SCREENING MAMMOGRAM 3D/2D: 10/08/2023 CLINICAL: Routine screening. Comparison is made to exam dated: 04/30/2022 mammogram - [facility]. There are scattered areas of fibroglandular density in both breasts (category b / 25%-50% glandular t issue). No significant masses, calcifications, or other findings are seen in either breast. There has been no significant interval change. IMPRESSION: NEGATIVE There is no mammographic evidence of malignancy. A 1 year screening mammogram is recommended. Based on the Tyrer Cuzick model (a risk assessment model) the patients lifetime risk is 9.0% and her 10 year risk is 1.7%. According to the ACR, ACS, and NCCN guidelines, an annual breast MRI exam rachid g with mammogram is recommended if the patients lifetime risk is 20% or greater. This exam was interpreted at Station ID: [id number]. NOTE: For mammograms, a report in lay terms will be sent to the patient. Approximately 15% of breast malignancies will not be visualized mammographically. In the management of a palpable breast mass, a negative mammogram must not discourage biopsy of a clinically suspicious lesion. Electronically Signed By: Cesar Mir M.D. slc/[email or web address]:10/08/2023 17:09:47 ACR BI-RADS Category 1: Negative 3341F PARENCHYMAL PATTERN: (A) - The breast(s) demonstrate(s) scattered fibroglandular densities. BI-RADS CATEGORY: (1) - 1 Mammogram [id number] 1 year screening LATERALITY: (B)
== END 2023-10-08 07:51 | disposition home or self-care (01) ==
LOC: DI.S 07:50
PROVIDERS: ATTEND Physician Assistant Medical
DX: Z12.31 Encounter for screening mammogram for malignant neoplasm of breast (principal); R92.323 Mammographic fibroglandular density, bilateral breasts

== ENCOUNTER 2023-12-06 09:30 | Outpatient (CLI) | payer OTHER ==
--- NOTE | 2023-12-08 11:14 | MRI Report ---
PROCEDURE: Ankle RT WO INDICATIONS: PAINFUL R FOOT AND TENDON TECHNIQUE: Noncontrast coronal and sagittal T1 spin echo and STIR; axial T1 spin echo and T2 fast spin echo with fat saturation through the . COMPARISON: None. FINDINGS: Image quality: Diagnostic Bones and Joints Tibiotalar joint: No acute fracture. Midfoot and hindfoot: No acute fracture or high-grade degenerative changes of the midfoot. Foot findi ngs are separately dictated. Subtalar degenerative changes and subtalar effusion Talar dome: No osteochondral lesions. Medial structures Flexor tendons: Mild tenosynovitis in the mid tendons. No full-thickness defect. Mild posterior tibia lis insertional tendinopathy. Deltoid ligaments: Visualized deep and superficial layers are intact. Spring complex: Intact. Sinus tarsi: Preserved fat signal. Lateral structures Ligaments: Overall intact. There is only mild signal abnormality, which may be from prior injury and remodeling Syndesmosis: Tibiofibular ligaments are intact. Syndesmosis is not pathologically widened (2mm). Peroneus tendons: Better seen on foot MRI Anterior structures Extensor tendons: Intact. Plantar and posterior structures Achilles: Intact. Plantar fascia: No pathologic edema. Muscles: No pathologic edema or atrophy. Other tissues: No abscess or measurable mass. IMPRESSION: Mild degenerative changes and effusion at the posterior facet of the subtalar joint. There is adjacen t tenosynovitis of the flexor tendons. Mild posterior tibialis insertional tendinopathy. No acute fracture or dislocation. Foot findings are separately dictated. Reviewed by: Yovani Pichardo MD on 12/08/2023 11:13 AM PDT Approved by: Yovani Pichardo MD on 12/08/2023 11:13 AM PDT Station ID: [id number]
--- NOTE | 2023-12-08 11:22 | MRI Report ---
PROCEDURE: Foot RT WO INDICATIONS: PAINFUL R FOOT AND TENDON TECHNIQUE: Noncontrast sagittal T1 spin echo and T2 fast spin echo with fat saturation, long-axis T1 spin echo a nd T2 fast spin echo with fat saturation, short-axis proton density fast spin echo and T2 fast spin e cho with fat saturation through the forefoot. COMPARISON: Same-day ankle MRI. Radiograph 09/24/2023 FINDINGS: Image quality: Diagnostic, but degraded by metallic artifact Bones: Fixation hardware at the first and fifth metatarsal necks. No acute edema. No evidence of meta tarsal stress fractures. Sesamoid bones of the first ray not well seen secondary to metallic artifact. Low-grade first MTP deg enerative changes. Of note, the fifth metatarsal fixation screw was broken on prior radiograph. Soft tissues: Mild tendinosis of the peroneus brevis and longus insertions. Intermetatarsal head monserrat a is seen between the second and third and third and fourth rays. Overall expected bulk and signal of the intrinsic plantar foot musculature, without significant atrophy or edema. Plantar plates appear intact, however the first rays not well evaluated due to metallic artifact. IMPRESSION: Mild first MTP degenerative changes. Postsurgical changes of the first and fifth metatar mj head/neck. The fifth metatarsal fixation screw appears broken on prior radiograph. Mild tendinosis of the peroneus tendons distally and at their insertions. Possible intermetatarsal mild bursitis between the second and third and third and fourth rays. Reviewed by: Yovani Pichardo MD on 12/08/2023 11:21 AM PDT Approved by: Yovani Pichardo MD on 12/08/2023 11:21 AM PDT Station ID: [id number]
== END 2023-12-06 09:31 | disposition home or self-care (01) ==
LOC: DI 09:30
PROVIDERS: ATTEND Podiatrist
DX: M19.071 Primary osteoarthritis, right ankle and foot (principal); M76.71 Peroneal tendinitis, right leg